=== PATIENT | male | born 1960 | race Caucasian/White ===

== ENCOUNTER 2017-09-09 18:17 | Emergency (ER) | payer BC, OTHER ==
--- NOTE | 2017-09-09 19:50 | EDPHY ---
H & P Stated Complaint: INjury to left hip, fell off skateboard. Source: Patient Exam Limitations: No limitations - Personal History Current Tetanus Diphtheria and Acellular Pertussis (TDAP): Yes - Medical/Surgical History Hx Asthma: No Hx Chronic Respiratory Disease: No Hx Diabetes: No Hx Cardiac Disease: No Hx Renal Disease: No Hx Cirrhosis: No Hx Alcoholism: No Hx HIV/AIDS: No Hx Splenectomy or Spleen Trauma: No Other PMH: HTN - Social History Smoking Status: Never smoked Time Seen by Provider: 09/09/17 18:55 HPI/ROS: HPI: This is a 57-year-old male who presents with Chief Complaint: INjury to left hip, fell off skateboard. Location: Left hip Quality: Injury Duration: 4 days ago Signs and Symptoms: No bleeding, no radiation, no numbness, no weakness, no tingling, no incontinence, no decreased range of motion, + swelling, no pain, no fever, + bruising Timing: Worsening Severity: Moderate Context: Patient reports that he was riding his 1 wheeled motorized skateboard approximately 4 days ago and hit hole in the trail and fell forward landing on his left hip. Patient reports that he felt immediate pain but was able to get up his own and continue on his several mile ride. Patient reports that he has been riding his skateboard every day since time. Today he accidentally fell off the skateboard again landing on the same left hip. He reports that he has increased swelling and bruising left hip area. Denies any paresthesias, weakness, numbness. Denies LOC/head injury/neck pain/dizziness/nausea/vomiting/ amnesia. Modifying Factors: None Comment: ROS: see HPI Constitutional: No fever, no chills, no weight loss Eyes: No blurred vision Respiratory: No shortness of breath, no cough Cardiovascular: No chest pain Gastrointestinal: No nausea, no vomiting no diarrhea Genitourinary: No dysuria Extremities: No myalgias Neurologic: No weakness, no numbness Skin: No rashes Hematologic: No bruising, no bleeding MEDICAL/SURGICAL/SOCIAL HISTORY: Medical history: Hypertension, seasonal allergies, hyperlipidemia Surgical history: Denies Social history: Retired. CONSTITUTIONAL: Extremely polite and cooperative adult white male, awake and alert, no obvious distress HEENT: Atraumatic and normocephalic. NECK: supple, no midline tenderness, flexion 45 degrees, extension 45 degrees, right and left lateral flexion 45 degrees. No meningismus. Cardiovascular: Normal S1/S2, regular rate, regular rhythm, without murmur rub or gallop. PULMONARY/CHEST: Symmetrical and nontender. no crepitus. Clear to auscultation bilaterally. Good air movement. No accessory muscle usage. ABDOMEN: Soft, nondistended, nontender, no ecchymosis. PELVIC: no pain with rocking; bilateral hips flexion 125 degrees, extension 30 degrees, with no pain internal rotation and no pain external rotation. BACK: No midline tenderness, no paraspinous spasm, deep tendon reflexes 2/2, no pain with straight leg raise, No foot drop. Achilles reflexes are equal bilaterally. Able to walk on heels and toes without difficulty. EXTREMITIES: 2/2 pulses, strength 5/5, left HIP: Approximately at 10 in annular ecchymotic area that his indurated but no tenderness with palpation. Flexion to 125, extension to 115, hyper extension to 15, abduction to 45. Pain with internal rotation and external rotation. tenderness over greater trochanter. DIP/PIP/MCP flexion/extension intact with good light touch sensation. no deformities, no clubbing, no cyanosis or edema. NEUROLOGICAL: no focal neuro deficits. GCS 15. Light touch sensation intact. SKIN: Warm and dry, no erythema. no rash. Good capillary refill. (Jeannette,Terra) Constitutional: Initial Vital Signs Temperature (C) 36.6 C 09/09/17 18:27 Heart Rate 66 09/09/17 18:27 Respiratory Rate 16 09/09/17 18:27 Blood Pressure 126/72 H 09/09/17 18:27 O2 Sat (%) 98 09/09/17 18:27 O2 Delivery Mode Room Air Allergies/Adverse Reactions: No Known Allergies Allergy (Unverified 06/23/09 17:24) Home Medications: Medication Instructions Recorded Advair 100/50 06/23/09 Singulair 06/23/09 Tussinex 06/23/09 Simvastatin 09/09/17 Medical Decision Making - Diagnostics Imaging Results: Imaging Impressions Hip X-Ray 09/09/17 18:34 Impression: No evidence of acute osseous injury. ED Course/Re-evaluation: Left hip x-ray shows no acute fracture. Patient has good distal pulses without any signs of neurovascular compromise/ tenting of skin/compartment syndrome/extremities and joints examined above and below area of concern and are neurovascularly intact. Advised rice therapy Patient politely declined any pain medications This patient was seen under the supervision of my secondary supervising physician. I evaluated care for this patient independently. Discussed this patient with Dr. Roche who did not see the patient. (Yessica Machado) I did not see this patient while he was in the emergency department. However his care was discussed with the PA while the patient was in the department. I agree with treatment plan and management (Al Roche) Differential Diagnosis: Differential diagnosis includes but is not limited to left hip fracture, compartment syndrome, contusion, hematoma, quadriceps strain, hamstring strain. (Yessica Machado) Departure - Departure Disposition: Home, Routine, Self-Care Clinical Impression: Contusion of left hip and thigh Qualifiers: Encounter type: initial encounter Qualified Code(s): S70.02XA - Contusion of left hip, initial encounter Hematoma of left hip Qualifiers: Encounter type: initial encounter Qualified Code(s): S70.02XA - Contusion of left hip, initial encounter Condition: Good Instructions: Compartment Syndrome (DC), Hematoma (ED), Bone Bruise (ED) Additional Instructions: Please limit activity on your affected extremity for the next 48-72 hours. Take Tylenol 650 mg every 4 hours and/or Ibuprofen 600 mg every 8 hours with food as needed for pain. Apply ice for 30 minutes at a time; 2-3 times per day for the next 1-2 days. Monitor for signs and symptoms of compartment syndrome and if any of these occur return to the emergency room immediately. The x-rays obtained in the emergency department today demonstrate no evidence of an obvious fracture. Sometimes fractures are not obvious on the initial set of x-rays performed in the ED. For this reason, you should have repeat x-rays performed in 7-10 days if you are having any pain exclude the possibility of an occult fracture. Referrals: MEETA BLANCO [Primary Care Provider] - 5-7 days, if not improved
[2017-09-09 19:57] VITALS: BP 141/74
== END 2017-09-09 19:57 | disposition home or self-care (01) ==
DX: S70.02XA Contusion of left hip, initial encounter (principal); S70.12XA Contusion of left thigh, initial encounter; I10 Essential (primary) hypertension; V00.131A Fall from skateboard, initial encounter; Y99.8 Other external cause status; Y93.51 Activity, roller skating (inline) and skateboarding

== ENCOUNTER 2017-12-21 06:45 | Emergency (ER) | payer BC ==
[2017-12-21 06:59] VITALS: BP 139/86
[2017-12-21] MEDS ORDERED: CEPHALEXIN 500 MG CAP PO ONE (07:03)
--- NOTE | 2017-12-21 07:06 | EDPHY ---
H & P Stated Complaint: laceration left elbow Time Seen by Provider: 12/21/17 06:53 HPI/ROS: CHIEF COMPLAINT: Left elbow injury HISTORY OF PRESENT ILLNESS: The patient is a 57-year-old man who fell yesterday skateboarding. He has a puncture wound to his left elbow. 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 He came today because he continued to have some serosanguineous drainage. He has normal range of motion. Severity: Moderate Modifying factors: None REVIEW OF SYSTEMS: Constitutional: denies: chills, fever, recent illness, recent injury EENTM: denies: blurred vision, double vision, nose congestion Respiratory: denies: cough, shortness of breath Cardiac: denies: chest pain, irregular heart rate, lightheadedness, palpitations Gastrointestinal/Abdominal: denies: abdominal pain, diarrhea, nausea, vomiting, blood streaked stools Genitourinary: denies: dysuria, frequency, hematuria, pain Musculoskeletal: denies: joint pain, muscle pain Skin: See HPI Neurological: denies: headache, numbness, paresthesia, tingling, dizziness, weakness Hematologic/Lymphatic: denies: blood clots, easy bleeding, easy bruising Immunologic/allergic: denies: HIV/AIDS, transplant 10 systems reviewed and negative except as noted EXAM: GENERAL: Well-appearing, well-nourished and in no acute distress. HEAD: Atraumatic, normocephalic. EYES: Pupils equal round and reactive to light, extraocular movements intact, sclera anicteric, conjunctiva are normal. ENT: TMs normal, nares patent, oropharynx clear without exudates. Moist mucous membranes. NECK: Normal range of motion, supple without lymphadenopathy or JVD. LUNGS: Breath sounds clear to auscultation bilaterally and equal. No wheezes rales or rhonchi. HEART: Regular rate and rhythm without murmurs, rubs or gallops. ABDOMEN: Soft, nontender, normoactive bowel sounds. No guarding, no rebound. No masses appreciated. BACK: No CVA tenderness, no spinal tenderness, step-offs or deformities EXTREMITIES: Puncture wound surrounded by abrasion to the left elbow. It does communicate with the bursa. Minimal bleeding or drainage. NEUROLOGICAL: Cranial nerves II through XII grossly intact. Normal speech, normal gait. 08/01 strength, normal movement in all extremities, normal sensation , normal reflexes PSYCH: Normal mood, normal affect. SKIN: See above Source: Patient Exam Limitations: No limitations - Personal History Current Tetanus Diphtheria and Acellular Pertussis (TDAP): Yes Tetanus Vaccine Date: unsure - Medical/Surgical History Hx Asthma: No Hx Chronic Respiratory Disease: No Hx Diabetes: No Hx Cardiac Disease: No Hx Renal Disease: No Hx Cirrhosis: No Hx Alcoholism: No Hx HIV/AIDS: No Hx Splenectomy or Spleen Trauma: No Other PMH: HTN,asthma - Family History Significant Family History: No pertinent family hx - Social History Smoking Status: Never smoked Alcohol Use: Sober Drug Use: None Constitutional: Initial Vital Signs Temperature (C) 36.6 C 12/21/17 06:52 Heart Rate 55 L 12/21/17 06:52 Respiratory Rate 14 12/21/17 06:52 Blood Pressure 139/86 H 12/21/17 06:52 O2 Sat (%) 96 12/21/17 06:52 O2 Delivery Mode Room Air Allergies/Adverse Reactions: No Known Allergies Allergy (Verified 12/21/17 06:52) Home Medications: Medication Instructions Recorded Singulair 06/23/09 Tussinex 06/23/09 Amlodipine Besylate 12/21/17 Cephalexin [Keflex] 500 mg PO TID #21 cap 12/21/17 Lisinopril 12/21/17 Medical Decision Making ED Course/Re-evaluation: I suggested to the patient that we numb the wound and irrigated again more thoroughly. I do not see any gross contamination. He declines however and states that he irrigated very thoroughly yesterday. We discussed the risks and benefits of suturing. I feel that this would make it more likely to become infected. Will start him on Keflex. He understands and agrees with this plan. We discussed symptoms to watch. Differential Diagnosis: Partial list of the Differential diagnosis considered include but were not limited to; puncture wound abrasion, laceration and although unlikely based on the history and physical exam, I also considered fracture, open fracture, dislocation. I discussed these differential diagnoses and the plan with the patient as well as the usual and expected course. The patient understands that the diagnosis is provisional and that in medicine we are not always correct and that further workup is often warranted. Usual and customary warnings were given. All of the patient's questions were answered. The patient was instructed to return to the emergency department should the symptoms at all worsen or return, otherwise to followup with the physician as we discussed. - Data Points Medications Given: Discontinued Medications Cephalexin HCl (Keflex) 500 mg PO EDNOW ONE PRN Reason: Protocol Stop: 12/21/17 07:04 Last Admin: 12/21/17 07:13 Dose: 500 mg Departure - Departure Disposition: Home, Routine, Self-Care Clinical Impression: Puncture wound left elbow Condition: Fair Instructions: Cephalexin (By mouth), Puncture Wound (ED) Referrals: Esvin Hughes DO [Doctor of Osteopathy] - As per Instructions Prescriptions: Cephalexin [Keflex] 500 mg PO TID #21 cap
== END 2017-12-21 07:10 | disposition home or self-care (01) ==
LOC: CED 06:45
DX: S51.032A Puncture wound without foreign body of left elbow, initial encounter (principal); V00.131A Fall from skateboard, initial encounter; Y92.480 Sidewalk as the place of occurrence of the external cause